=== PATIENT | female | born 1965 | race Caucasian/White ===

== ENCOUNTER 2017-09-03 07:03 | Emergency (ER) | payer BC ==
--- OUTSIDE RECORDS SUMMARY | 2017-09-03 07:14 | XMS REPORT ---
:1965 External Reference #:[id number] Author Organization [facility] [employer] Address [address] [address] Phone [phone] Care Team Providers Name Role Phone Jorge A Barfield III, MD Primary Care Physician Unavailable Payers Type Date Identification Numbers Payment Provider Subscriber Health Maintenance Policy Number: [facility] Susan Mazariegos Organization (O) [id number] PayID: [id number] [address] [address] Medigap Part B Expires: 08/22/2017 Policy Number: [id number] [facility] Susan Mazariegos PayID: [id number] [address] [place] [address] Medigap Part B Effective: 08/01/2013 Policy Number: BS [employer] Jono Mazariegos [id number] Expires: 07/31/2014 PayID: [id number] [address] [address] Medigap Part B Effective: 08/01/2012 Policy Number: BS Of SANDI Mazariegos [id number] Expires: 07/31/2013 PayID: [id number] [address] [address] Medigap Part B Effective: 08/01/2010 Policy Number: [id number] BS Of SANDI Mazariegos Expires: 07/31/2012 Group Name: Indemnity [address] PayID: [id number] [address] Problems Date Description Provider Status Onset: 10/28/2010 Hyperlipidemia Jackie Lion M.D., FACP Active Onset: 10/28/2010 Asthma without status asthmaticus Jackie Lion M.D., FACP Active Family History Date Family Member(s) Problem(s) Comments General No Current Problems Father 74 Father Hypertension Mother 72 Mother Hypercholesterolemia Katelynn Marlow First Son 9 First Daughter 11 Social History Type Date Description Comments Marital Status Lives With 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P. bedtime Epipen 2-Bernabe / Active Device 0.3mg/0.3M 2unit sc prn Unknown 0000 L s Clarithromycin 01/11/ Hx Tablets 500mg 20tab 1 by mouth J01.90 Mouna 2015 - twice a day Leann, 01/25/ M.D. 2015 Vitamin D3 09/11/ Hx Capsules [id number] 8caps 1 tab by Mallika 2016 - mouth once Mendoza, 02/04/ per week, 8 M.D. 2016 weeks, then follow up for blood test Azithromycin 05/04/ Hx Tablets 250mg 6tabs two tabs 466.0 Antoinette 2012 - day one, Varn, 05/14/ one daily N.P. 2012 till gone Hydrocortisone 10/10/ Hx Cream 1% 1unit 1 apply to Jackie Cream 2011 - s affected Amisha, 10/10/ area during M.D., 2011 ultrasound FACP procedure as needed Hydrocortisone 10/10/ Hx Cream 1% 1unit 1 apply to Jackie 2011 - s affected Amisha, 10/11/ area during M.D., 2012 ultrasound FACP procedure as needed No Current 08/05/ Hx Jackie Medications 2010 - Amisha, 07/27/ M.D., 2010 FACP Immunizations CPT Code Status Date Vaccine Lot # [id number] Given 05/08/2017 Influenza Virus Vaccine, Quadrivalent, Split, Preservative Free [id number] Given 10/26/2016 Tdap - Tetanus/Diptheria/Acellular Pertussis [id number] Q2035 Given 04/25/2016 Afluria Vaccine 70928 Given 05/10/2015 Influenza Virus Vaccine, Quadrivalent, Split, Preservative Free Q2035 Given 05/05/2014 Afluria Vaccine Q2038 Given 05/19/2013 Fluzone Vaccine Q2035 Given 04/23/2012 Afluria Vaccine 19092 Given 05/25/2011 Influenza Virus 3Yrs & Over [id number] 88219 Given 05/22/2010 Influenza Virus 3Yrs & Over [id number] 15679 Given 04/10/2009 Hepatitis A Vaccine Adult Dosage 73418 Given 04/10/2009 Hepatitis A Vaccine Adult Dosage 57725 Given 04/10/2009 Influenza Virus 3Yrs & Over 86781 Given 10/08/2008 Hepatitis A Vaccine Adult Dosage 90166 Given 10/08/2008 Hepatitis A Vaccine Adult Dosage 62086 Given 05/24/2008 Influenza Virus 3Yrs & Over 49446 Given 05/18/2007 Influenza Virus 3Yrs & Over 02684 Given 05/18/2007 Influenza Virus 3Yrs & Over 10487 Given 05/16/2006 Influenza Virus 3Yrs & Over 31597 Given 02/15/2005 Tetanus And Diptheria (Td) For Adult Use Preservative Free 83051 Given 05/25/2004 Pneumonia Vaccine Vital Signs Date Vital Result Comment 08/23/2017 Weight 177.12 lb Heart Rate 77 /min BP Systolic Sitting 120 mmHg BP Diastolic Sitting 76 mmHg Body Temperature 97.9 F O2 % BldC Oximetry 98 % 12/15/2016 Weight 178.00 lb Heart Rate 80 /min BP Systolic Sitting 118 mmHg BP Diastolic Sitting 118 mmHg Respiratory Rate 14 /min Body Temperature 98.2 F O2 % BldC Oximetry 98 % 10/26/2016 Height 67 inches 5'7" Weight 178.00 lb Heart Rate 76 /min BP Systolic Sitting 134 mmHg BP Diastolic Sitting 84 mmHg Respiratory Rate 15 /min O2 % BldC Oximetry 98 % BMI (Body Mass Index) 27.9 kg/m2 03/22/2016 Height 67 inches 5'7" Weight 175.00 lb Heart Rate 64 /min BP Systolic Sitting 124 mmHg BP Diastolic Sitting 72 mmHg Respiratory Rate 16 /min Pain Level 3 BMI (Body Mass Index) 27.4 kg/m2 02/25/2016 Weight 179.25 lb Heart Rate 73 /min BP Systolic Sitting 136 mmHg BP Diastolic Sitting 91 mmHg Body Temperature 98.7 F O2 % BldC Oximetry 98 % 01/12/2016 Weight 177.00 lb Heart Rate 79 /min BP Systolic Sitting 126 mmHg BP Diastolic Sitting 72 mmHg Body Temperature 96.0 F 09/11/2015 Height 66.5 inches 5'6.50" Weight 174.00 lb Heart Rate 64 /min BP Systolic Sitting 118 mmHg BP Diastolic Sitting 78 mmHg Body Temperature 97.9 F Pain Level 3 hips O2 % BldC Oximetry 96 % BMI (Body Mass Index) 27.7 kg/m2 05/01/2015 Weight 175.00 lb Heart Rate 66 /min BP Systolic Sitting 124 mmHg BP Diastolic Sitting 82 mmHg Body Temperature 98.9 F 09/10/2014 Height 67 inches 5'7" Weight 180.00 lb Heart Rate 77 /min BP Systolic Sitting 124 mmHg BP Diastolic Sitting 78 mmHg O2 % BldC Oximetry 96 % BMI (Body Mass Index) 28.2 kg/m2 10/15/2013 Height 67.25 inches 5'7.25" Weight 176.50 lb Heart Rate 70 /min BP Systolic Sitting 104 mmHg BP Diastolic Sitting 60 mmHg Body Temperature 98.7 F BMI (Body Mass Index) 27.4 kg/m2 08/31/2013 Weight 176.50 lb Heart Rate 76 /min BP Systolic Sitting 120 mmHg BP Diastolic Sitting 78 mmHg Body Temperature 98.5 F 05/04/2013 Weight 175.00 lb Heart Rate 72 /min BP Systolic Sitting 110 mmHg BP Diastolic Sitting 78 mmHg Body Temperature 98.3 F 10/11/2012 Height 67 inches 5'7" Weight 173.25 lb Heart Rate 76 /min BP Systolic Sitting 114 mmHg BP Diastolic Sitting 80 mmHg BMI (Body Mass Index) 27.1 kg/m2 10/06/2011 Height 66.75 inches 5'6.75" Weight 176.00 lb Heart Rate 64 /min BP Systolic Sitting 128 mmHg BP Diastolic Sitting 80 mmHg BMI (Body Mass Index) 27.8 kg/m2 09/01/2011 Height 66.75 inches 5'6.75" Weight 176.00 lb Heart Rate 76 /min BP Systolic Sitting 122 mmHg BP Diastolic Sitting 74 mmHg BMI (Body Mass Index) 27.8 kg/m2 07/27/2011 Height 66.75 inches 5'6.75" Weight 182.00 lb Heart Rate 78 /min BP Systolic Sitting 126 mmHg BP Diastolic Sitting 74 mmHg BMI (Body Mass Index) 28.7 kg/m2 05/25/2011 Height 66.75 inches 5'6.75" Weight 179.00 lb Heart Rate 64 /min BP Systolic Sitting 134 mmHg l BP Diastolic Sitting 82 mmHg l BMI (Body Mass Index) 28.2 kg/m2 10/28/2010 Weight 174.50 lb Heart Rate 80 /min BP Systolic 122 mmHg BP Diastolic 76 mmHg 08/06/2010 Height 67 inches 5'7" Weight 174.75 lb Heart Rate 78 /min BP Systolic 110 mmHg BP Diastolic 78 mmHg BMI (Body Mass Index) 27.4 kg/m2 Results Test Date Test Result H/L Range Note Lipid Profile (Trig/Chol/HDL) 10/21/2016 Triglycerides 123 mg/dL 1 Cholesterol 187 mg/dL 2 HDL Cholesterol 57.4 mg/dL 3 LDL Cholesterol 105 mg/dL 4 Comp Metabolic Panel 10/21/2016 Sodium 137 mmol/L 133-145 Potassium 4.4 mmol/L 3.5-5.0 Chloride 104 mmol/L 101-111 Co2 Carbon Dioxide 27 mmol/L 22-32 Anion Gap 6 mmol/L 2-11 Glucose 81 mg/dL 70-100 Blood Urea Nitrogen 13 mg/dL 6-24 Creatinine 0.80 mg/dL 0.51-0.95 BUN/Creatinine Ratio 16.3 8-20 Calcium 9.5 mg/dL 8.6-10.3 Total Protein 6.9 g/dL 6.4-8.9 Albumin 4.3 g/dL 3.2-5.2 Globulin 2.6 g/dL 2-4 Albumin/Globulin Ratio 1.7 1-3 Total Bilirubin 0.90 mg/dL 0.2-1.0 Alkaline Phosphatase 53 U/L 34-104 Alt 18 U/L 7-52 Ast 21 U/L 13-39 Egfr Non- 75.6 >60 Egfr 97.3 >60 5 Laboratory test 03/16/2016 Surgical Pathology SEE RESULT BELOW 6, 7 finding Laboratory test 01/26/2016 Vitamin D Total 25(Oh) 42.4 ng/mL 30-50 finding Laboratory test 12/02/2015 Vitamin D Total 25(Oh) 28.2 ng/mL Low 30-50 finding Laboratory test 09/11/2015 Vitamin D Total 25(Oh) 20.5 ng/mL Low 30-50 finding Lipid Profile 07/24/2015 Triglycerides 156 mg/dL 8 (Trig/Chol/HDL) Cholesterol 198 mg/dL 9 HDL Cholesterol 49.4 mg/dL 10 LDL Cholesterol 117 mg/dL 11 Comp Metabolic Panel 07/24/2015 Sodium 137 mmol/L 133-145 Potassium 4.2 mmol/L 3.5-5.0 Chloride 103 mmol/L 101-111 Co2 Carbon Dioxide 27 mmol/L 22-32 Anion Gap 7 mmol/L 2-11 Glucose 78 mg/dL 70-100 Blood Urea Nitrogen 13 mg/dL 6-24 Creatinine 0.85 mg/dL 0.51-0.95 BUN/Creatinine Ratio 15.3 8-20 Calcium 9.5 mg/dL 8.6-10.3 Total Protein 7.1 g/dL 6.4-8.9 Albumin 4.6 g/dL 3.2-5.2 Globulin 2.5 g/dL 2-4 Albumin/Globulin Ratio 1.8 1-3 Total Bilirubin 1.10 mg/dL High 0.2-1.0 Alkaline Phosphatase 57 U/L 34-104 Alt 24 U/L 7-52 Ast 28 U/L 13-39 Egfr Non- 70.8 >60 Egfr 91.0 >60 12 Laboratory test finding 01/21/2014 TSH (Thyroid Stimulating 1.90 IU/mL 0.34-5.60 Horm) Comp Metabolic Panel 01/21/2014 Sodium 137 mmol/L 133-145 Potassium 4.1 mmol/L 3.7-5.6 Chloride 106 mmol/L 101-111 Co2 Carbon Dioxide 25 mmol/L 22-32 Anion Gap 6 mmol/L 2-11 Glucose 94 mg/dL 70-100 Blood Urea Nitrogen 12 mg/dL 6-24 Creatinine 0.81 mg/dL 0.51-0.95 BUN/Creatinine Ratio 14.8 8-20 Calcium 9.3 mg/dL 8.6-10.3 Total Protein 6.8 g/dL 6.4-8.9 Albumin 4.4 g/dL 3.2-5.2 Globulin 2.4 g/dL 2-4 Albumin/Globulin Ratio 1.8 1-3 Total Bilirubin 0.70 mg/dL 0.2-1.0 Alkaline Phosphatase 58 U/L 34-104 Alt 16 U/L 7-52 Ast 21 U/L 13-39 Egfr Non- 75.2 >60 Egfr 96.7 >60 13 Lipid Profile (Trig/Chol/HDL) 01/21/2014 Triglycerides 125 mg/dL 14 Cholesterol 179 mg/dL 15 HDL Cholesterol 48.8 mg/dL 16 LDL Cholesterol 105 mg/dL 17 Laboratory test finding 08/31/2013 Rapid Strep A neg CBC Auto Diff 10/21/2012 White Blood Count 7.3 10^3/uL 4.8-10.8 Red Blood Count 4.72 10^6/uL 4.0-5.4 Hemoglobin 13.0 g/dL 12.0-16.0 Hematocrit 39 % 35-47 Mean Corpuscular Volume 83 fL 80-97 Mean Corpuscular Hemoglobin 28 pg 27-31 Mean Corpuscular HGB Conc 33 g/dL 31-36 Red Cell Distribution Width 14 % 10.5-15 Platelet Count 217 10^3/uL 150-450 Mean Platelet Volume 8 um3 7.4-10.4 Abs Neutrophils 4.7 10^3/uL 1.5-7.7 Abs Lymphocytes 1.9 10^3/uL 1.0-4.8 Abs Monocytes 0.5 10^3/uL 0-0.8 Abs Eosinophils 0.2 10^3/uL 0-0.6 Abs Basophils 0.1 10^3/uL 0-0.2 Abs Nucleated RBC 0 10^3/uL Granulocyte % 63.9 % 38-83 Lymphocyte % 25.9 % 25-47 Monocyte % 6.6 % 1-9 Eosinophil % 2.5 % 0-6 Basophil % 1.1 % 0-2 Nucleated Red Blood Cells % 0 Laboratory test finding 10/21/2012 TSH (Thyroid Stimulating 1.52 miu/mL 0.34-5.60 Horm) Comp Metabolic Panel 09/30/2012 Sodium 140 mmol/L 133-145 Potassium 4.1 mmol/L 3.5-5.0 Chloride 111 mmol/L 101-111 Co2 Carbon Dioxide 25.0 mmol/L 22-32 Anion Gap 4.0 mmol/L 2-11 Glucose 89 mg/dL 70-100 Blood Urea Nitrogen 9 mg/dL 6-24 Creatinine 0.80 mg/dL 0.50-1.40 BUN/Creatinine Ratio 11.3 8-20 Calcium 9.5 mg/dL 8.1-9.9 Total Protein 6.4 g/dL 6.2-8.1 Albumin 3.9 g/dL 3.6-5.4 Globulin 2.5 g/dL 2-4 Albumin/Globulin Ratio 1.6 1-3 Total Bilirubin 0.8 mg/dL 0.4-1.5 Alkaline Phosphatase 53 U/L 30-110 Alt 19 U/L 14-54 Ast 21 U/L 12-42 Egfr Non- 76.9 >60 Egfr 98.9 >60 18 Lipid Profile (Trig/Chol/HDL) 09/30/2012 Triglycerides 96 mg/dL 40-200 Cholesterol 161 mg/dL Less than 200 HDL Cholesterol 51 mg/dL 40-60 19 Cholesterol/HDL Ratio 3.2 Average 1-4.44 LDL Cholesterol 90.8 mg/dL Less Than 100 20 Laboratory test finding 07/22/2011 TSH 1.53 MIU/ML 0.34-5.60 Liver Function Panel 07/22/2011 Total Protein 6.8 GM/DL 6.2-8.1 Albumin 3.9 GM/DL 3.6-5.4 Globulin 2.9 GM/DL 2-4 Albumin/Globulin Ratio 1.3 1-3 Bilirubin Total 1.5 mg/dL 0.4-1.5 21 Bilirubin Direct 0.1 mg/dL 0.1-0.5 Indirect Bilirubin 1.4 mg/dL High 0.3-1.0 22 Alkaline Phosphatase 63 U/L 30-110 Alt (SGPT) 21 U/L 14-54 Ast (Sgot) 27 U/L 12-42 Laboratory test finding 07/22/2011 Glucose 86 mg/dL 70-100 Lipid Profile (Trig/Chol/HDL) 07/22/2011 Triglyceride 181 mg/dL 40-200 Cholesterol 185 mg/dL Less Than 200 23 High Density Lipoprotein 45 mg/dL 40-60 24 Cholesterol/HDL Ratio 4.11 AVERAGE 1-4.44 Low Density Lipoprotein 104 mg/dL High Less Than 100 25 Laboratory test finding 05/08/2011 Glucose 88 mg/dL 70-100 Lipid Profile (Trig/Chol/HDL) 05/08/2011 Triglyceride 270 mg/dL High 40- 200 Cholesterol 230 mg/dL High Less Than 200 26 High Density Lipoprotein 42 mg/dL 40-60 27 Cholesterol/HDL Ratio 5.48 AVERAGE High 1-4.44 Low Density Lipoprotein 134 mg/dL High Less Than 100 28 1 Desirable <150 Borderline high 150-199 High 200-499 Very High >500 2 Desirable <200 Borderline high 200-239 High >239 3 Low <40 Desirable: 40-60 High: >60 4 Desirable: <100 mg/dL Near Optimal: 100-129 mg/dL Borderline High: 130-159 mg/dL High: 160-189 mg/dL Very High: >189 mg/dL 5 Because ethnic data is not always readily available, this report includes an eGFR for both -Americans and non- Americans. The National Kidney Disease Education Program (NKDEP) does not endorse the use of the MDRD equation for patients that are not between the ages of 18 and 70, are , have extremes of body size, muscle mass, or nutritional status, or are non- or non-. According to the National Kidney Foundation, irrespective of diagnosis, the stage of the disease is based on the level of kidney function: Stage Description GFR(mL/min/1.73 m(2)) 1 Kidney damage with normal or decreased GFR 90 2 Kidney damage with mild decrease in GFR 60-89 3 Moderate decrease in GFR 30-59 4 Severe decrease in GFR 15-29 5 Kidney failure <15 (or dialysis) 6 [id number] SEE RESULT BELOW Name: ABRAHAMSUSAN Tommy Tommy : [address]: Marcos Agarwal MD Acct: [id number] Unit: [id number] AGE: 50 Location: [facility] Re03/16/16 SEX: F Status: DEP REF SPEC: [id number] [place]: 03/16/16-[address] [facility] [address]: Marcos Agarwal MD REQ: [id number] RECD: 03/16/165215 STATUS: LIBORIO NIETO DR: Mallika Mendoza MD _ ORDERED: LEVEL IV/2 COMMENTS: [id number] FINAL DIAGNOSIS 1. Colon, cecum, biopsy: -- Tubular adenoma. -- No high grade dysplasia or malignancy. 2. Colon, at 45 cm, biopsy: -- Tubular adenoma. -- No high grade dysplasia or malignancy. CLINICAL HISTORY No history given POST-OPERATIVE DIAGNOSIS Cecum at 45 cm biopsied; 5 years GROSS DESCRIPTION 1. The specimen is received in formalin labeled, Biopsy Cecal Polyp, and consists of a 0.3 x 0.3 x 0.3 cm almaraz polypoid soft tissue fragment, which is inked and submitted entirely in one cassette. 2. The specimen is received in formalin labeled, Biopsy Colon Polyp at 45 cm, and consists of two almaraz irregular to polypoid soft tissue fragments measuring 0.3 x 0.2 x 0.2 cm and 0.4 x 0.3 x 0.2 cm, which are submitted entirely in one cassette. Signed (signature on file) Daja Naqvi MD [id number] END OF REPORT * ML=Testing performed at Main Lab DEPARTMENT OF PATHOLOGY, [address] [place] [address] Jani Gagnon M.D. Director [facility] # [id number] Desirable <150 Borderline high 150-199 High 200-499 Very High >500 9 Desirable <200 Borderline high 200-239 High >239 10 Low <40 Desirable: 40-60 High: >60 11 Desirable: <100 mg/dL Near Optimal: 100-129 mg/dL Borderline High: 130-159 mg/dL High: 160-189 mg/dL Very High: >189 mg/dL 12 Because ethnic data is not always readily available, this report includes an eGFR for both -Americans and non- Americans. The National Kidney Disease Education Program (NKDEP) does not endorse the use of the MDRD equation for patients that are not between the ages of 18 and 70, are , have extremes of body size, muscle mass, or nutritional status, or are non- or non-. According to the National Kidney Foundation, irrespective of diagnosis, the stage of the disease is based on the level of kidney function: Stage Description GFR(mL/min/1.73 m(2)) 1 Kidney damage with normal or decreased GFR 90 2 Kidney damage with mild decrease in GFR 60-89 3 Moderate decrease in GFR 30-59 4 Severe decrease in GFR 15-29 5 Kidney failure <15 (or dialysis) 13 Because ethnic data is not always readily available, this report includes an eGFR for both -Americans and non- Americans. The National Kidney Disease Education Program (NKDEP) does not endorse the use of the MDRD equation for patients that are not between the ages of 18 and 70, are , have extremes of body size, muscle mass, or nutritional status, or are non- or non-. According to the National Kidney Foundation, irrespective of diagnosis, the stage of the disease is based on the level of kidney function: Stage Description GFR(mL/min/1.73 m(2)) 1 Kidney damage with normal or decreased GFR 90 2 Kidney damage with mild decrease in GFR 60-89 3 Moderate decrease in GFR 30-59 4 Severe decrease in GFR 15-29 5 Kidney failure <15 (or dialysis) 14 Desirable <150 Borderline high 150-199 High 200-499 Very High >500 15 Desirable <200 Borderline high 200-239 High >239 16 Low <40 Desirable: 40-60 High: >60 17 Desirable <100 Near Optimal 100-129 Borderline high 130-159 High 160-189 Very High >189 18 Because ethnic data is not always readily available, this report includes an eGFR for both -Americans and non- Americans. The National Kidney Disease Education Program (NKDEP) does not endorse the use of the MDRD equation for patients that are not between the ages of 18 and 70, are , have extremes of body size, muscle mass, or nutritional status, or are non- or non-. According to the National Kidney Foundation, irrespective of diagnosis, the stage of the disease is based on the level of kidney function: Stage Description GFR(mL/min/1.73 m(2)) 1 Kidney damage with normal or decreased GFR 90 2 Kidney damage with mild decrease in GFR 60-89 3 Moderate decrease in GFR 30-59 4 Severe decrease in GFR 15-29 5 Kidney failure <15 (or dialysis) 19 HDL Interpretation: Undesirable: High Risk: Less than 40 MG/DL Desirable: Low Risk: Greater than 60 MG/DL 20 LDL Interpretation: Low Risk Optimal Level: LDL Less than 100 MG/DL Near or Above Optimal: LDL 100-129 MG/DL Borderline High Risk: LDL 130-159 MG/DL High Risk: LDL 160-189 MG/DL Very High Risk: LDL Greater than 189 MG/DL 21 A metabolite of Naproxen, O-desmethylnaproxen, has been shown to interfere with the [place] method for measuring total bilirubin. Samples from patients who have taken Naproxen have shown spurious elevation in total bilirubin levels. 22 Please note updated reference range, effective 02/19/10 23 CHOLESTEROL INTERPRETATION: Desirable: Less than 200 MG/DL Borderline-High Risk: 200-239 MG/DL High-Risk: 240 MG/DL and over 24 HDL INTERPRETATION: Undesirable: High Risk: Less than 40 MG/DL Desirable: Low Risk: Greater than 60 MG/DL 25 LDL INTERPRETATION: Low Risk Optimal Level: LDL Less than 100 MG/DL Near or Above Optimal: LDL 100-129 MG/DL Borderline High Risk: LDL 130-159 MG/DL High Risk: LDL 160-189 MG/DL Very High Risk: LDL Greater than 189 MG/DL 26 CHOLESTEROL INTERPRETATION: Desirable: Less than 200 MG/DL Borderline-High Risk: 200-239 MG/DL High-Risk: 240 MG/DL and over 27 HDL INTERPRETATION: Undesirable: High Risk: Less than 40 MG/DL Desirable: Low Risk: Greater than 60 MG/DL 28 LDL INTERPRETATION: Low Risk Optimal Level: LDL Less than 100 MG/DL Near or Above Optimal: LDL 100-129 MG/DL Borderline High Risk: LDL 130-159 MG/DL High Risk: LDL 160-189 MG/DL Very High Risk: LDL Greater than 189 MG/DL Procedures Date CPT Code Description Status Comment 08/05/2016 Mammogram Completed 03/29/2016 Mammogram Completed Document: 07/29/15 - Mammogram Screening 03/16 MRI breast normal 03/16/2016 Colonoscopy Completed 09/16/2015 Bone Mineral Density Test Completed 07/29/2015 Mammogram Completed 01/23/2015 Mammogram Completed 07/24/2014 Mammogram Completed 04/11/2013 Mammogram Completed 10/11/2012 10137 EKG Tracing & Completed Interpretation 12/22/2010 Mammogram Completed 08/06/2010 31569 EKG Tracing & Completed Interpretation 05/22/2010 59653 Admin Of Inj Completed 11/28/2009 Mammogram Completed 05/24/2008 12876 EKG Tracing & Completed Interpretation 05/18/2007 82698 EKG Tracing & Completed Interpretation 01/26/2007 Mammogram Completed Encounters Type Date Location Provider CPT E/M Dx Office Visit 12/15/2016 [facility] Jorge A Barfield, 77315 H81.10 4:00p - [place] [facility] Office Visit 10/26/2016 [facility] Jorge A Barfield 23130 Z00.00 3:00p - [place] [facility] E78.00 L98.9 Z23 Office Visit 03/22/2016 8:20a [facility] Noelle Hernandez, 06927 M65.841 [facility] M65.842 Office Visit 02/25/2016 1:20p [facility] Antoinette Alonso, N.P. 68551 G56.01 - [place] G56.02 Office Visit 01/12/2016 9:30a [facility] Mouna Noriega, 04037 J01.90 - [place] MCarmine Office Visit 09/11/2015 9:00a [facility] Mallika Mendoza M.D. 50663 Z00.01 - [place] R29.890 M25.551 M25.552 M21.40 E78.0 Office Visit 05/01/2015 10:20a [facility] Antoinette Alonso, N.P. 27594 N64.4 - [place] Office Visit 09/10/2014 3:00p [facility] Mallika Mendoza M.D. 04145 V70.0 - [place] 272.0 Office Visit 10/15/2013 9:20a [facility] - Jackie Lion M.D., 53433 V70.0 [place] FACP V76.10 493.90 272.0 626.2 528.5 Office Visit 08/31/2013 4:20p [facility] Edita Jorge Alberto, 54775 462 - [place] [facility] Office Visit 05/04/2013 9:40a [facility] Antoinette Alonso, N.P. 91803 466.0 - [place] Office Visit 10/11/2012 11:00a [facility] Jackie Lion M.D., 27222 V70.0 - [place] FACP V76.10 272.0 493.90 626.2 Office Visit 10/06/2011 4:20p [facility] Jackie Lion M.D., 62706 719.45 - [place] FACP Office Visit 09/01/2011 3:40p [facility] Jackie Lion M.D., 48974 719.45 - [place] FACP Office Visit 07/27/2011 2:20p DO Not Use Jackie Lion M.D., 58614 272.4 [facility] [facility] 379.90 Office Visit 05/25/2011 3:00p DO Not Use [facility] Jackie Amisha, 03771 272.4 M.D., FACP V04.81 Office Visit 10/28/2010 3:30p DO Not Use [facility] Jackie Amisha, 06516 272.4 M.D., FACP Office Visit 08/06/2010 9:30a DO Not Use [facility] Jackiekalia Lion, 96243 V70.0 M.D., FACP 272.4 Office Visit 02/06/2010 1:30p DO Not Use [facility] Antoinette Gavin, 37597 461.9 N.P. 466.0 Office Visit 08/19/2009 9:45a DO Not Use [facility] Antoinette Alonso, 27909 127.4 N.P. Office Visit 02/25/2009 11:30a DO Not Use [facility] Jackie Lion M.D., 35904 784.0 FACP Office Visit 12/09/2008 9:00a DO Not Use [facility] Jackie Lion M.D., 26522 272.4 FACP 493.90 Office Visit 10/08/2008 9:45a DO Not Use [facility] Jackie Lion, 50419 272.4 M.D., FACP V07.8 V05.3 Office Visit 05/24/2008 9:30a DO Not Use [facility] Jackie Lion, 24263 V70.0 M.D., FACP 272.4 611.71 V04.81 Office Visit 01/05/2008 11:00a DO Not Use [facility] Jackie Lion M.D., 50081 465.9 FACP Office Visit 07/19/2007 10:30a DO Not Use [facility] Antoinette Alonso, 50729 462 N.P. Office Visit 05/18/2007 9:15a DO Not Use [facility] Jackie Lion M.D., 23783 V70.0 FACP 272.4 V04.81 Office Visit 01/13/2007 9:00a DO Not Use Jackie Lion M.D., 05424 611.71 [facility] F[facility] Office Visit 12/13/2006 9:45a DO Not Use Antoinette Varn, 27517 034.0 Fraud [facility] Office Visit 10/13/2006 11:45a DO Not Use Antoinette Varn, [phone] [facility] [facility] Office Visit 07/21/2006 10:00a DO Not Use Antoinette Varn, [phone] [facility] [facility] Office Visit 05/16/2006 10:15a DO Not Use Jackie Lion M.D., [phone] [facility] Office Visit 03/21/2006 9:45a DO Not Use Jackie Lion M.D., [phone] [facility] Plan of Care Future Appointment(s):10/27/2017 1:20 pm - Jorge A Barfield M.D. at [facility] - Keumnkncv38/23/2018 - Mouna Noriega M.D.[id number] Superficial foreign body, unspecified lower leg, init encntrComments:watch for infection if the pain persists do let me know I might have to refer you to the specialist
[2017-09-03 07:18] VITALS: BP 151/79
--- NOTE | 2017-09-03 07:38 | UC ---
Lower Extremity/Ankle HPI - HPI Summary HPI Summary: Stepped on wooden surface and had splinter on right foot for the past 2 weeks, PCP attempted dislodging it but it was very small and patient was waiting for it to work itself out. She states it causes pain when stepping on it. - History of Current Complaint Chief Complaint: UCLowerExtremity Stated Complaint: FB IN FOOT Time Seen by Provider: 09/03/17 07:21 Hx Obtained From: Patient Hx Last Menstrual Period: 08/27/17 Onset/Duration: Sudden Onset, Lasting Weeks Severity Initially: Mild Severity Currently: Mild Pain Intensity: 4 Aggravating Factor(s): Standing, Ambulation Alleviating Factor(s): Rest Able to Bear Weight: Yes - Risk Factors Gout Risk Factors: Negative DVT Risk Factors: Negative Septic Arthritis Risk Factor: Negative - Allergies/Home Medications Allergies/Adverse Reactions: Allergies Allergy/AdvReac Type Severity Reaction Status Date / Time cephalexin Allergy Rash Verified 09/03/17 07:19 doxycycline Allergy Rash Verified 09/03/17 07:19 Ampicillin Allergy Rash Uncoded 09/03/17 07:19 Wasps Allergy Hives Uncoded 09/03/17 07:19 PMH/Surg Hx/FS Hx/Imm Hx Previously Healthy: Yes Endocrine History: Dyslipidemia - Surgical History Surgical History: Yes Surgery Procedure, Year, and Place: D&C - Family History Known Family History: Positive: Cardiac Disease, Other - hyperlipidemia - Social History Alcohol Use: Rare Substance Use Type: None Smoking Status (MU): Never Smoked Tobacco Review of Systems Constitutional: Negative All Other Systems Reviewed And Are Negative: Yes Physical Exam Triage Information Reviewed: Yes Appearance: Well-Appearing Vital Signs: Initial Vital Signs Temp 98.1 F 09/03/17 07:12 Pulse 71 09/03/17 07:12 Resp 16 09/03/17 07:12 BP 151/79 09/03/17 07:12 Pulse Ox 98 09/03/17 07:12 Vital Signs Reviewed: Yes Eyes: Positive: Conjunctiva Clear Respiratory Exam: Normal Musculoskeletal Exam: Other - punctiform splincter on midline metatarsal area right foot with formation of surrounding callus Musculoskeletal: Positive: Strength Intact, ROM Intact Lower Extremity Course/Dx - Course Course Of Treatment: Instructed to soak feet with Epson Salts. Observation for splincter self effacement - Differential Dx/Diagnosis Provider Diagnoses: Splincter/Foreign body right foot Discharge - Discharge Plan Condition: Stable Disposition: HOME Patient Education Materials: Soft Tissue Foreign Body (ED) Referrals: Jorge A Barfield MD [Primary Care Provider] -
== END 2017-09-03 07:46 | disposition home or self-care (01) ==
LOC: UCEAST 07:03
DX: S90.851A Superficial foreign body, right foot, initial encounter (principal); W45.8XXA Other foreign body or object entering through skin, initial encounter; Y93.01 Activity, walking, marching and hiking; Y92.9 Unspecified place or not applicable
CPT/HCPCS: 99211; G0463

== ENCOUNTER 2018-06-26 09:33 | Emergency (ER) | payer BC ==
[2018-06-26 10:13] LABS: ABS Basophils 0 10^3/ul (0-0.2); ABS Eosinophils 0.1 10^3/ul (0-0.6); ABS Lymphocytes 1.8 10^3/ul (1.0-4.8); ABS Monocytes 0.4 10^3/ul (0-0.8); ABS Neutrophils 3.4 10^3/ul (1.5-7.7); ABS Nucleated RBC 0 10^3/ul; Eosinophil % 1.9 % (0-6); Hematocrit 41 % (35-47); Hemoglobin 14.4 g/dl (12.0-16.0); Lymphocyte % 32.1 % (25-47); Mean Corpuscular HGB Conc 35 g/dl (31-36); Mean Corpuscular Hemoglobin 30 pg (27-31); Mean Corpuscular Volume 86 fL (80-97); Nucleated Red Blood Cells % 0.1; Platelet Count 204 10^3/ul (150-450); Red Blood Count 4.77 10^6/ul (4.00-5.40); Red Cell Distribution Width 13 % (10.5-15); White Blood Count 5.8 10^3/ul (3.5-10.8)
--- NOTE | 2018-06-26 10:21 | ED ---
HPI Chest Pain - HPI Summary HPI Summary: Patient is a 52-year-old female presenting to the ED with left-sided chest pain which is discretely located under the left breast. Pain is nonradiating. She denies any pain currently. She states she awoke this morning well, but after walking her dog, developed the tenderness to the area. She states she has had this in the past but usually it is over the breast area. She has had a history of mastitis 2 in the past when she was breast-feeding, and has had intermittent pain since that time. She has also had 2 mg in the past, both which were normal findings. Family history of breast cancer, but no personal history of breast cancer. Family history of [place] (mother and grandmother at elderly age). Mother still living and well. Denies shortness of breath, fever , sweats, chills. Denies any abdominal pain. She states the pain lasted approximately one hour and is currently denying any pain on arrival. Symptoms are not worse with exertion or better with rest. - History of Current Complaint Chief Complaint: EDChestPainROMI Time Seen by Provider: 06/26/18 09:41 Hx Obtained From: Patient Hx Last Menstrual Period: 08/27/17 Onset/Duration: Started Hours Ago Timing: Constant Initial Severity: Mild Current Severity: None Pain Intensity: 4 Pain Scale Used: 0-10 Numeric Chest Pain Location: Left Lateral Chest Pain Radiates: No Character: Dull/Aching Aggravating Factor(s): Nothing Alleviating Factor(s): Nothing Associated Signs and Symptoms: Positive: Negative - Risk Factors Pulmonary Embolism Risk Factors: Negative TAD Risk Factors: Negative - Allergy/Home Medications Allergies/Adverse Reactions: Allergies Allergy/AdvReac Type Severity Reaction Status Date / Time cephalexin Allergy Rash Verified 06/26/18 09:46 doxycycline Allergy Rash Verified 06/26/18 09:46 Ampicillin Allergy Rash Uncoded 06/26/18 09:46 Wasps Allergy Hives Uncoded 06/26/18 09:46 PMH/Surg Hx/FS Hx/Imm Hx Previously Healthy: Yes Endocrine/Hematology History: Denies: Hx Diabetes, Hx Thyroid Disease Cardiovascular History: Denies: Hx Hypertension, Hx Pacemaker/ICD Respiratory History: Denies: Hx Asthma, Hx Chronic Obstructive Pulmonary Disease (COPD) GI History: Denies: Hx Ulcer History: Denies: Hx Renal Disease Musculoskeletal History: Denies: Hx Osteoporosis Sensory History: Denies: Hx Hearing Aid Psychiatric History: Denies: Hx Panic Disorder - Cancer History Hx Chemotherapy: No Hx Radiation Therapy: No - Surgical History Surgery Procedure, Year, and Place: D&C - Immunization History Hx Pertussis Vaccination: No Immunizations Up to Date: Yes Infectious Disease History: No Infectious Disease History: Denies: Hx Hepatitis, Hx Human Immunodeficiency Virus (HIV), History Other Infectious Disease, Traveled Outside the [place] in Last 30 Days - Family History Known Family History: Positive: Cardiac Disease, Other - hyperlipidemia - Social History Occupation: Employed Full-time Lives: With Family Alcohol Use: Rare Hx Substance Use: No Substance Use Type: Reports: None Hx Tobacco Use: No Smoking Status (MU): Never Smoked Tobacco Review of Systems Constitutional: Negative Negative: Fever, Chills, Fatigue, Skin Diaphoresis Negative: Dental Pain, Sore Throat, Ear Ache Positive: Chest Pain. Negative: Palpitations Negative: Shortness Of Breath, Cough Genitourinary: Negative Positive: no symptoms reported, see HPI Negative: Arthralgia, Myalgia Skin: Negative Neurological: Negative All Other Systems Reviewed And Are Negative: Yes Physical Exam Triage Information Reviewed: Yes Vital Signs On Initial Exam: Initial Vitals Temp Pulse Resp BP Pulse Ox 97.7 F 76 16 152/79 95 06/26/18 09:35 06/26/18 09:35 06/26/18 09:35 06/26/18 09:35 06/26/18 09:35 Vital Signs Reviewed: Yes Appearance: Positive: Well-Appearing, Well-Nourished Skin: Positive: Warm, Skin Color Reflects Adequate Perfusion Head/Face: Positive: Normal Head/Face Inspection Eyes: Positive: EOMI, LARY Neck: Positive: Supple, No Lymphadenopathy Respiratory/Lung Sounds: Positive: Clear to Auscultation, Breath Sounds Present Cardiovascular: Positive: RRR, Pulses are Symmetrical in both Upper and Lower Extremities Musculoskeletal: Positive: Strength/ROM Intact Neurological: Positive: Normal, Sensory/Motor Intact, Speech Normal Psychiatric: Positive: Normal, Affect/Mood Appropriate AVPU Assessment: Alert - [place] Coma Scale Best Eye Response: 4 - Spontaneous Best Motor Response: 6 - Obeys Commands Best Verbal Response: 5 - Oriented Coma Scale Total: 15 Diagnostics - Vital Signs Vital Signs Temp Pulse Resp BP Pulse Ox 06/26/18 09:35 97.7 F 76 16 152/79 95 - Laboratory Lab Results: Lab Results 06/26/18 Range/Units 10:06 WBC 5.8 (3.5-10.8) 10^3/ul RBC 4.77 (4.00-5.40) 10^6/ul Hgb 14.4 (12.0-16.0) g/dl Hct 41 (35-47) % MCV 86 (80-97) fL MCH 30 (27-31) pg MCHC 35 (31-36) g/dl RDW 13 (10.5-15) % Plt Count 204 (150-450) 10^3/ul MPV 8.0 (7.4-10.4) fL Neut % (Auto) 59.1 (38-83) % Lymph % (Auto) 32.1 (25-47) % Fleming % (Auto) 6.4 (0-7) % Eos % (Auto) 1.9 (0-6) % Baso % (Auto) 0.5 (0-2) % Absolute Neuts (auto) 3.4 (1.5-7.7) 10^3/ul Absolute Lymphs (auto) 1.8 (1.0-4.8) 10^3/ul Absolute Monos (auto) 0.4 (0-0.8) 10^3/ul Absolute Eos (auto) 0.1 (0-0.6) 10^3/ul Absolute Basos (auto) 0 (0-0.2) 10^3/ul Absolute Nucleated RBC 0 10^3/ul Nucleated RBC % 0.1 Result Diagrams: 06/26/18 10:06 06/26/18 10:06 Lab Statement: Any lab studies that have been ordered have been reviewed, and results considered in the medical decision making process. Chest Pain Course/Dx - Course Course Of Treatment: Patient is evaluated for left-sided chest pain which she describes as a small area just under the left breast which is nonradiating. This lasted approximately one hour after walking her dog this morning. She denies any pain on arrival. EKG obtained which shows: Normal sinus rhythm. Chest x-ray obtained which shows: No acute active cardiopulmonary disease. D- dimer negative and patient denies any recent travel, calf pain or smoking history. Labs are unremarkable including a troponin of 0.00. On physical examination, patient. Appears well, nontoxic, nondiaphoretic. Denies any pain. Declines any pain medications. There is no pain with palpation to the chest wall or area under the left breast. There is no ecchymosis, erythema or other signs of trauma to the left side. Patient is at a low risk for cardiac and since she does not have any cardiac history and is currently asymptomatic. This is likely a costochondral pain versus inflammation versus other etiology. Patient has a follow-up for a mammogram MRI early next week. Discussed return precautions. Patient understands these. - Chest Pain Differential Diagnosis/HQI/PQRI: ACS, Chest Wall - Diagnoses Provider Diagnoses: Atypical chest pain Discharge - Sign-Out/Discharge Documenting (check all that apply): Patient Departure - Discharge Plan Condition: Stable Disposition: HOME Patient Education Materials: Chest Pain (ED) Referrals: Jorge A Barfield MD [Primary Care Provider] - Additional Instructions: Please follow up with PCP as scheduled - Billing Disposition and Condition Condition: STABLE Disposition: Home
[2018-06-26 10:39] LABS: EGFR Non-African American 82.1 (>60)
[2018-06-26 11:11] VITALS: BP 137/82
== END 2018-06-26 11:10 | disposition home or self-care (01) ==
LOC: ED 09:33
DX: R07.89 Other chest pain (principal); Z88.0 Allergy status to penicillin; Z88.1 Allergy status to other antibiotic agents; Z91.030 Bee allergy status; Z82.49 Family history of ischemic heart disease and other diseases of the circulatory system
CPT/HCPCS: 36415; 71046; 80053; 82553; 83605; 83735; 83880; 84484; 85025; 85379; 85610; 85730; 93005; 99282

== ENCOUNTER 2019-06-15 09:31 | Emergency (ER) | payer BC ==
[2019-06-15] MEDS ORDERED: Acetaminophen TAB* 325 MG PO ONE (09:44)
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
[2019-06-15 11:38] VITALS: BP 130/82
== END 2019-06-15 13:30 | disposition home or self-care (01) ==
LOC: ED 09:31
DX: S09.90XA Unspecified injury of head, initial encounter (principal); W22.8XXA Striking against or struck by other objects, initial encounter; Y92.9 Unspecified place or not applicable; Z88.1 Allergy status to other antibiotic agents; Z88.0 Allergy status to penicillin
CPT/HCPCS: 99282; A9270-GY